=== PATIENT | female | born 1965 | race Caucasian/White ===

== ENCOUNTER 2016-11-27 12:28 | Emergency (ER) | payer MEDICAID ==
[~2016-11-27] VITALS: Wt 76.0 kg
[~2016-11-27 12:28] MED LIST: ACET500C5 PO; OSLT75C PO; PANT40TA3 PO; PROM5SYR2 PO
[2016-11-27] MEDS ORDERED: SOD CHLORIDE 0.9% 1,000 ML IV STA (13:51)
[2016-11-27] MEDS ORDERED: DIPHENHYDRAMINE 50 MG INJ IV STA (13:51)
[2016-11-27] MEDS ORDERED: KETOROLAC 30 MG INJ IV STA (13:51)
[2016-11-27] MEDS ORDERED: METOCLOPRAMIDE 10 MG INJ IV STA (13:51)
[2016-11-27 14:08] LABS: URINE BLOOD (Dip) POC Trace-intact (NEGATIVE)
--- NOTE | 2016-11-27 14:26 | ERD ---
ER Documentation Chief Complaint Date/Time DATE: 11/27/16 TIME: 14:23 Chief Complaint HEADACHE X 2 DAYS HPI Patient is a 50-year-old female with a past medical history of diabetes type 2 who presents to the ED with headache for 3 days. Patient states that she has had this headache before and this is a typical headache she experiences in the past. She denies stating that this headache came on suddenly and denies stating that this is the worst headache of her life. She denies trauma or injury or falls. She says that the pain is located on her entire head and neck. She denies chest pain, cough, shortness of breath or difficulty breathing. She denies dizziness, blurry vision. Denies ear pain. Denies abdominal pain, nausea, vomiting or diarrhea. Denies polyphagia, polyuria polydipsia. She states that her blood sugars are controlled at home ROS All systems reviewed and are negative except as per history of present illness. Medications Home Meds Active Scripts Ondansetron (Ondansetron Odt) 4 Mg Tab.rapdis, 4 MG PO Q6H Y for NAUSEA AND/OR VOMITING, #10 TAB Prov:KATINA ROSALES PA-C 11/27/16 Acetaminophen/Aspirin/Caffeine* (Excedrin*) 1 Tab Tab, 1 TAB PO BID for 14 Days , TAB Prov:KATINA ROSALES PA-C 11/27/16 Oseltamivir Phosphate* (Tamiflu*) 75 Mg Capsule, 75 MG PO BID for 5 Days, CAP Prov:AUDIE STRATTON MD 06/23/16 Acetaminophen* (Tylophen*) 500 Mg Capsule, 1 CAP PO Q6H Y for PAIN AND OR ELEVATED TEMP, #20 CAP Prov:AUDIE STRATTON MD 06/23/16 Promethazine HCl/Codeine (Prometh-Codein 6.25-10 mg/5 ml) 5 Ml Syrup, 5 ML PO TID for COUGH for 4 Days Prov:AUDIE STRATTON MD 06/23/16 Acetaminophen* (Tylophen*) 500 Mg Capsule, 1 CAP PO Q6H Y for PAIN AND OR ELEVATED TEMP, #20 CAP Prov:AUDIE STRATTON MD 06/16/16 Pantoprazole* (Protonix*) 40 Mg Tablet.dr, 40 MG PO DAILY, #20 TAB Prov:AUDIE STRATTON MD 06/16/16 Allergies Allergies: Coded Allergies: No Known Drug Allergies (Verified Allergy, Unknown, 06/23/16) PMhx/Soc History of Surgery: No Anesthesia Reaction: No Hx Neurological Disorder: No Hx Respiratory Disorders: No Hx Cardiac Disorders: No Hx Psychiatric Problems: No Hx Miscellaneous Medical Probl: Yes (DM) Hx Alcohol Use: No Hx Substance Use: No Hx Tobacco Use: No FmHx Family History: No coronary disease, No diabetes, No other Physical Exam Vitals Vital Signs Date Time Temp Pulse Resp B/P Pulse Ox O2 Delivery O2 Flow Rate FiO2 11/27/16 12:32 98.0 92 18 131/72 99 Physical Exam GENERAL: Well-developed, well-nourished female. Appears in no acute distress. HEAD: Normocephalic, atraumatic. EYES: Pupils are equally reactive bilaterally. EOMs grossly intact. No conjunctival erythema. ENT: Moist mucous membranes. No uvula deviation. No kissing tonsils. No exudates. NECK: Supple. No lymphadenopathy or thyromegaly. No meningismus. negative kernig. negative brudinski. LUNG: Clear to auscultation bilaterally. No rhonchi, wheezing, rales or coarse breath sounds. HEART: Regular rate and rhythm. No murmurs, rubs or gallops. Extremities: Equal pulses bilaterally. No peripheral clubbing, cyanosis or edema. No unilateral leg swelling. NEUROLOGIC: Alert and oriented. Moving all four extremities. 5/5 strength in all extremities. Normal speech. Steady gait. Cranial nerves II through XII intact. No ataxia. Negative Romberg test. SKIN: Normal color. Warm and dry. No rashes or lesions. Capillary refill < 2 seconds Results 24 hrs Laboratory Tests Test 11/27/16 14:10 Bedside Urine pH (LAB) 5.5 Bedside Urine Protein (LAB) Negative Bedside Urine Glucose (UA) Negative Bedside Urine Ketones (LAB) Negative Bedside Urine Blood Trace-intact Bedside Urine Nitrite (LAB) Negative Bedside Urine Leukocyte Esterase (L Negative Current Medications Medications (Trade) Dose Ordered Sig/Christi Route PRN Reason Start Time Stop Time Status Last Admin Dose Admin Sodium Chloride (NS) 1,000 ml @ 1,000 mls/hr Q1H STAT IV 11/27/16 13:51 5/22/17 14:50 DC 11/27/16 14:13 Metoclopramide HCl (Reglan) 10 mg ONCE STAT IV 11/27/16 13:51 11/27/16 13:54 DC 11/27/16 14:13 Ketorolac Tromethamine (Toradol) 30 mg ONCE STAT IV 11/27/16 13:51 11/27/16 13:54 DC 11/27/16 14:13 Diphenhydramine HCl (Benadryl) 25 mg ONCE STAT IV 11/27/16 13:51 11/27/16 13:54 DC 11/27/16 14:13 Procedures/MDM ER COURSE: I kept the patient and/or family informed of laboratory and diagnostic imaging results throughout the emergency room course. MEDICATIONS IV fluids, normal saline, Toradol, Reglan, Benadryl. Tolerated well and stated improvement in symptoms. Negative test. MEDICAL DECISION MAKING: This is a 50-year-old female who presents with headache 3 days. Vital signs were reviewed. Patient is afebrile. Patient is not hypoxic. Patient is not toxic or ill-appearing. Patient's headache is something that she has experienced in the past and is likely of unknown etiology, likely migraines. I did not think a CT scan was warranted at this time, patient's cranial nerve examination was within normal limits and this headache was a typical headache she has experienced. I believe the risks outweigh the benefits of a CT scan and I do not think a CT scan is warranted at this time. I discussed the risk versus benefits to the patient. Patient did not want a CT scan. I reexamined patient after medication, she stated improvement in symptoms is ready for home. Low suspicion for intracranial hemorrhage, meningitis, intracranial mass, concussion, temporal arteritis, stroke, elevated intracranial pressure, seizure. DISCHARGE: At this time, patient is stable for discharge and outpatient management with no new complaints during the ER course. Patient was sent home with Maykel Limon and to follow-up with her primary care.. Patient will be discharged home with instructions to recheck for new or worsening symptoms such as fever, nausea , weakness, LOC and to follow up with primary care in the next 1-2 days. Patient was advised to return to the ER for any new or worsening symptoms. Plan was discussed and patient and/or family understands and agrees. Home instructions were given. Departure Diagnosis: Primary Impression: Headache Headache type: unspecified Headache chronicity pattern: unspecified pattern Intractability: not intractable Qualified Code: R51 - Nonintractable headache, unspecified chronicity pattern, unspecified headache type Condition: Stable KATINA ROSALES PA-C November 27, 2016 14:26
[2016-11-27] MEDS ORDERED: EXCED PO (15:45)
[2016-11-27] MEDS ORDERED: ONDA4TAB14 PO (15:45)
== END 2016-11-27 16:03 | disposition home or self-care (01) ==
LOC: FTE 12:28
DX: R51 Headache (principal); E11.9 Type 2 diabetes mellitus without complications
CPT/HCPCS: 81003; 96374; 96375; J1200; J1885; J2765; J7030; Z7502

== ENCOUNTER 2017-01-06 15:56 | Emergency (ER) | payer MEDICAID ==
[~2017-01-06] VITALS: Ht 152.4 cm; Wt 97.7 kg
[~2017-01-06 15:56] MED LIST changes: +EXCED PO; +ONDA4TAB14 PO
[2017-01-06 15:57] VITALS: Ht 152.4 cm; Wt 97.7 kg
[2017-01-06] MEDS ORDERED: SOD CHLORIDE 0.9% 1,000 ML IV STA (16:18)
[2017-01-06 16:43] LABS: ADD SCAN DIFF NO; BASOPHILS % 0.3 % (0.0-2.0); EOSINOPHILS % 0.6 % (0.0-7.0); HEMATOCRIT 38.1 % (37.0-47.0); HEMOGLOBIN 12.6 g/dl (12.0-16.0); LYMPHOCYTES # 2.7 10^3/ul (0.8-2.9); LYMPHOCYTES % 40.7 % (15.0-51.0); MEAN CORPUSCULAR HEMOGLOBIN 29.7 pg (29.0-33.0); MEAN CORPUSCULAR HGB CONC 33.1 g/dl (32.0-37.0); MEAN CORPUSCULAR VOLUME 89.9 fl (82.0-101.0); MONOCYTE # 0.4 10^3/ul (0.3-0.9); MONOCYTES % 6.7 % (0.0-11.0); NEUTROPHIL # 3.4 10^3/ul (1.6-7.5); NEUTROPHILS % 51.5 % (39.0-77.0); PLATELET COUNT 199 10^3/UL (140-415); RED BLOOD COUNT 4.24 10^6/ul (4.20-5.40); RED CELL DISTRIBUTION WIDTH 13.3 % (11.5-14.5); WHITE BLOOD COUNT 6.6 10^3/ul (4.8-10.8)
[2017-01-06 17:01] LABS: ALANINE AMINOTRANSFERASE 44 IU/L (13-69); ALBUMIN 5.1 g/dl (3.3-4.9); ALBUMIN/GLOBULIN RATIO 1.34; ALKALINE PHOSPHATASE 110 IU/L (42-121); ANION GAP 17 (8-16); ASPARTATE AMINO TRANSFERASE 26 IU/L (15-46); BILIRUBIN,INDIRECT 0.1 mg/dl (0-1.1); BILIRUBIN,TOTAL 0.1 mg/dl (0.2-1.3); BLOOD UREA NITROGEN 14 mg/dl (7-20); CALCIUM 9.7 mg/dl (8.4-10.2); CARBON DIOXIDE 26 mmol/L (21-31); CHLORIDE 100 mmol/L (97-110); GLUCOSE 122 mg/dl (70-220); POTASSIUM 3.6 mmol/L (3.5-5.1); SODIUM 139 mmol/L (135-144); TOTAL PROTEIN 8.9 g/dl (6.1-8.1)
[2017-01-06 17:13] LABS: ADD UMIC NO; UR ASCORBIC ACID NEGATIVE (NEGATIVE); UR BILIRUBIN (Dip) NEGATIVE (NEGATIVE); UR BLOOD (Dip) NEGATIVE (NEGATIVE); UR CLARITY CLEAR (CLEAR); UR COLOR STRAW (YELLOW); UR GLUCOSE (Dip) NEGATIVE (NEGATIVE); UR KETONES (Dip) NEGATIVE (NEGATIVE); UR LEUKOCYTE ESTERASE (Dip) NEGATIVE Leu/ul (NEGATIVE); UR NITRITE (Dip) NEGATIVE (NEGATIVE); UR SPECIFIC GRAVITY (Dip) 1.009 (1.003-1.030); UR TOTAL PROTEIN (Dip) NEGATIVE (NEGATIVE); UR UROBILINOGEN (Dip) NEGATIVE (NEGATIVE)
[2017-01-06 17:14] LABS: TROPONIN-I < 0.012 ng/ml (0.00-0.12)
[2017-01-06] MEDS ORDERED: METF1000 PO (17:43)
[2017-01-06] MEDS ORDERED: ASPI-664 PO (17:43)
[2017-01-06] MEDS ORDERED: SIMV20TA2 PO (17:43)
[2017-01-06] MEDS ORDERED: NAPR-685 PO (19:06)
--- NOTE | 2017-01-06 19:14 | ERD ---
ER Documentation Chief Complaint Date/Time DATE: 01/06/17 TIME: 19:10 Chief Complaint headache; non radiating chest pain started yesterday HPI This 51-year-old female presents for a mild to moderate frontal headache as well as chest pain and epigastric pain that began yesterday. Chest pain is described as an ache and is nonradiating. Headache is described as a constant pain. Headache is not severe. She has no shortness of breath or nausea. ROS All systems reviewed and are negative except as per history of present illness. Medications Home Meds Active Scripts Naproxen* (Naproxen*) 375 Mg Tablet, 375 MG PO BID Y for PAIN, #10 TAB Prov:RAMANA ABARCA DO 01/06/17 Reported Medications Aspirin (Low Dose Aspirin) 81 Mg Tablet.dr, 81 MG PO DAILY, #30 TAB 01/06/17 Simvastatin (Simvastatin) 20 Mg Tablet, 20 MG PO QHS, #30 TAB 01/06/17 Metformin Hcl* (Metformin Hcl*) 1,000 Mg Tablet, 1000 MG PO WITH BREAKFAST DINNE , #30 TAB 01/06/17 Discontinued Scripts Ondansetron (Ondansetron Odt) 4 Mg Tab.rapdis, 4 MG PO Q6H Y for NAUSEA AND/OR VOMITING, #10 TAB Prov:KATINA ROSALES PA-C 11/27/16 Acetaminophen/Aspirin/Caffeine* (Excedrin*) 1 Tab Tab, 1 TAB PO BID for 14 Days , TAB Prov:KATINA ROSALES PA-C 11/27/16 Oseltamivir Phosphate* (Tamiflu*) 75 Mg Capsule, 75 MG PO BID for 5 Days, CAP Prov:AUDIE STRATTON MD 06/23/16 Acetaminophen* (Tylophen*) 500 Mg Capsule, 1 CAP PO Q6H Y for PAIN AND OR ELEVATED TEMP, #20 CAP Prov:AUDIE STRATTON MD 06/23/16 Promethazine HCl/Codeine (Prometh-Codein 6.25-10 mg/5 ml) 5 Ml Syrup, 5 ML PO TID for COUGH for 4 Days Prov:AUDIE STRATTON MD 06/23/16 Acetaminophen* (Tylophen*) 500 Mg Capsule, 1 CAP PO Q6H Y for PAIN AND OR ELEVATED TEMP, #20 CAP Prov:AUDIE STRATTON MD 06/16/16 Pantoprazole* (Protonix*) 40 Mg Tablet.dr, 40 MG PO DAILY, #20 TAB Prov:AUDIE STRATTON MD 06/16/16 Allergies Allergies: Coded Allergies: No Known Drug Allergies (Verified Allergy, Unknown, 01/06/17) PMhx/Soc History of Surgery: Yes ( X3) Anesthesia Reaction: No Hx Neurological Disorder: No Hx Respiratory Disorders: No Hx Cardiac Disorders: Yes (HDL) Hx Psychiatric Problems: No Hx Miscellaneous Medical Probl: Yes (DM) Hx Alcohol Use: No Hx Substance Use: No Hx Tobacco Use: No Smoking Status: Never smoker Physical Exam Vitals Vital Signs Date Time Temp Pulse Resp B/P Pulse Ox O2 Delivery O2 Flow Rate FiO2 01/06/17 15:57 98.0 114 19 176/90 100 Physical Exam Const: [] Head: Atraumatic Eyes: Normal Conjunctiva ENT: Normal External Ears, Nose and Mouth. Neck: Full range of motion..~ No meningismus. Resp: Clear to auscultation bilaterally Cardio: Regular rate and rhythm, no murmurs Abd: Soft, non tender, non distended. Normal bowel sounds Skin: No petechiae or rashes Back: No midline or flank tenderness Ext: No cyanosis, or edema Neur: Awake and alert Psych: Normal Mood and Affect Result Diagram: 01/06/17 1635 01/06/17 1635 Results 24 hrs Laboratory Tests Test 01/06/17 16:35 01/06/17 16:40 White Blood Count 6.610^3/ul Red Blood Count 4.2410^6/ul Hemoglobin 12.6g/dl Hematocrit 38.1% Mean Corpuscular Volume 89.9fl Mean Corpuscular Hemoglobin 29.7pg Mean Corpuscular Hemoglobin Concent 33.1g/dl Red Cell Distribution Width 13.3% Platelet Count 02269^3/UL Mean Platelet Volume 11.0fl Neutrophils % 51.5% Lymphocytes % 40.7% Monocytes % 6.7% Eosinophils % 0.6% Basophils % 0.3% Nucleated Red Blood Cells % 0.0/100WBC Neutrophils # 3.410^3/ul Lymphocytes # 2.710^3/ul Monocytes # 0.410^3/ul Eosinophils # 0.010^3/ul Basophils # 0.010^3/ul Nucleated Red Blood Cells # 0.010^3/ul Sodium Level 139mmol/L Potassium Level 3.6mmol/L Chloride Level 100mmol/L Carbon Dioxide Level 26mmol/L Anion Gap 17 Blood Urea Nitrogen 14mg/dl Creatinine 0.70mg/dl Glucose Level 122mg/dl Calcium Level 9.7mg/dl Total Bilirubin 0.1mg/dl Direct Bilirubin 0.00mg/dl Indirect Bilirubin 0.1mg/dl Aspartate Amino Transf (AST/SGOT) 26IU/L Alanine Aminotransferase (ALT/SGPT) 44IU/L Alkaline Phosphatase 110IU/L Troponin I < 0.012ng/ml Total Protein 8.9g/dl Albumin 5.1g/dl Globulin 3.80g/dl Albumin/Globulin Ratio 1.34 Lipase 138U/L Urine Color STRAW Urine Clarity CLEAR Urine pH 6.0 Urine Specific [place] 1.009 Urine Ketones NEGATIVEmg/dL Urine Nitrite NEGATIVEmg/dL Urine Bilirubin NEGATIVEmg/dL Urine Urobilinogen NEGATIVEmg/dL Urine Leukocyte Esterase NEGATIVELeu/ul Urine Hemoglobin NEGATIVEmg/dL Urine Glucose NEGATIVEmg/dL Urine Total Protein NEGATIVEmg/dl Urine Test NEGATIVE Current Medications Medications (Trade) Dose Ordered Sig/Christi Route PRN Reason Start Time Stop Time Status Last Admin Dose Admin Sodium Chloride (NS) 1,000 ml @ 1,000 mls/hr Q1H STAT IV 01/06/17 16:18 01/06/17 17:17 DC 01/06/17 16:50 Aspirin (Aspirin) 324 mg ONCE ONCE PO 01/06/17 19:30 01/06/17 19:31 Procedures/MDM Chest pains with no signs of ischemia. Negative troponin after 1 day of chest pain with no recent increase. Pain was resolved in the emergency room with nothing but IV fluid as treatment. Headache also dissipated with no treatment. I see no reason for CAT scan imaging of head is headache dissipated with fluid only and patient says that it was not very bad. Also does not have any pain pattern consistent with subarachnoid hemorrhage. I doubt acute coronary syndrome also. Going to discharge her with naproxen in case she experiences a headache again. I am also discharging with instructions see her primary care doctor in the next couple of days and obtain an echocardiogram as an outpatient. I give her both verbal and written instructions of this. She feels well and thanks us for her care. She was also administered 325 mg of aspirin. EKG interpretation: Sinus tachycardia to 102, normal axis, no ST or T-wave changes concerning for acute ischemia, normal intervals. site monitor interpretation: Normal sinus rhythm without arrhythmia. Departure Diagnosis: Primary Impression: Headache Additional Impression: Chest pain Condition: Stable Patient Instructions: Self-Care for Headaches, Chest Pain, Uncertain Cause Additional Instructions: Llame al doctor ELKE y geneva rocio CHUCKIE PARA DENTRO DE 1-2 ZARATE. Consigue un referral para un ECHOCARDIOGRAMA. Dgale a la secretaria que nosotros le instruimos hacer esta chuckie.Avise o llame si galdamez condicin se empeora antes de la chuckie. Regresa aqui si peor o no mejor. RAMANA ABARCA DO Jan 06, 2017 19:14
[2017-01-06 19:24] VITALS: BP 142/78; PULSE 67; RESP 19; TEMP 98
[2017-01-06] MEDS ORDERED: ASPIRIN 81 MG TAB PO ONE (19:30)
== END 2017-01-06 19:25 | disposition home or self-care (01) ==
LOC: E/R 15:56
DX: R51 Headache (principal); R07.9 Chest pain, unspecified; E11.9 Type 2 diabetes mellitus without complications; Z79.82 Long term (current) use of aspirin; Z79.84 Long term (current) use of oral hypoglycemic drugs
CPT/HCPCS: 80053; 81003; 83690; 84484; 84703; 85025; 96360; J7030; Z7502; Z7610; 93005

== ENCOUNTER 2017-01-27 21:55 | Emergency (ER) | payer MEDICAID ==
[~2017-01-27] VITALS: Ht 160 cm; Wt 65.0 kg
[~2017-01-27 21:55] MED LIST changes: -ACET500C5 PO; +ASPI-664 PO; -EXCED PO; +METF1000 PO; +NAPR-685 PO; -ONDA4TAB14 PO; -OSLT75C PO; -PANT40TA3 PO; -PROM5SYR2 PO; +SIMV20TA2 PO
[2017-01-27 22:07] VITALS: Ht 160 cm; Wt 65.0 kg
--- NOTE | 2017-01-27 23:46 | ERD ---
ER Documentation Chief Complaint Date/Time DATE: 01/27/17 TIME: 23:44 Chief Complaint c/o epigastric pain x 12 hrs. HPI This 51-year-old diabetic female presents to emergency department with epigastric pain and burning since yesterday morning pain is radiating to right upper quadrant, patient denies nausea or vomiting, fever or chills. Denies dysuria, hematuria. Chest pain shortness of breath palpitations or dizziness. ROS All systems reviewed and are negative except as per history of present illness. Medications Home Meds Active Scripts Naproxen* (Naproxen*) 375 Mg Tablet, 375 MG PO BID Y for PAIN, #10 TAB Prov:RAMANA ABARCA DO 01/06/17 Reported Medications Aspirin (Low Dose Aspirin) 81 Mg Tablet.dr, 81 MG PO DAILY, #30 TAB 01/06/17 Simvastatin (Simvastatin) 20 Mg Tablet, 20 MG PO QHS, #30 TAB 01/06/17 Metformin Hcl* (Metformin Hcl*) 1,000 Mg Tablet, 1000 MG PO WITH BREAKFAST DINNE , #30 TAB 01/06/17 Allergies Allergies: Coded Allergies: No Known Drug Allergies (Verified Allergy, Unknown, 01/27/17) PMhx/Soc History of Surgery: Yes ( X3) Anesthesia Reaction: No Hx Neurological Disorder: No Hx Respiratory Disorders: No Hx Cardiac Disorders: Yes (HDL) Hx Psychiatric Problems: No Hx Miscellaneous Medical Probl: Yes (DM) Hx Alcohol Use: No Hx Substance Use: No Hx Tobacco Use: No Smoking Status: Never smoker Physical Exam Vitals Vital Signs Date Time Temp Pulse Resp B/P Pulse Ox O2 Delivery O2 Flow Rate FiO2 01/27/17 22:07 98.1 81 18 122/69 98 Physical Exam Const: Well-nourished, well-hydrated, well-appearing in obvious discomfort no acute distress Head: Atraumatic Eyes: Normal Conjunctiva, PERRLA, EOMI ENT: Normal External Ears, Nose and Mouth. His membranes moist Neck: Resp: Clear to auscultation bilaterally, no rales wheezes or rhonchi Cardio: Regular rate and rhythm, no murmurs, S1-S2, no S3-S4 Abd: Obese, soft, non-tympanic abdomen positive Baptiste sign, positive epigastric tenderness, rebound tenderness. No CVA tenderness Skin: No petechiae or rashes Back: No midline or flank tenderness Ext: No cyanosis, or edema Neur: Awake and alert Psych: Normal Mood and Affect Result Diagram: 01/27/17 2355 01/27/17 2355 Results 24 hrs Laboratory Tests Test 01/27/17 23:55 White Blood Count 5.710^3/ul Red Blood Count 4.1710^6/ul Hemoglobin 12.4g/dl Hematocrit 37.6% Mean Corpuscular Volume 90.2fl Mean Corpuscular Hemoglobin 29.7pg Mean Corpuscular Hemoglobin Concent 33.0g/dl Red Cell Distribution Width 13.7% Platelet Count 51605^3/UL Mean Platelet Volume 11.6fl Neutrophils % 51.9% Lymphocytes % 40.5% Monocytes % 6.3% Eosinophils % 0.9% Basophils % 0.4% Nucleated Red Blood Cells % 0.0/100WBC Neutrophils # 3.010^3/ul Lymphocytes # 2.310^3/ul Monocytes # 0.410^3/ul Eosinophils # 0.110^3/ul Basophils # 0.010^3/ul Nucleated Red Blood Cells # 0.010^3/ul Urine Color STRAW Urine Clarity CLEAR Urine pH 7.0 Urine Specific [place] 1.025 Urine Ketones TRACEmg/dL Urine Nitrite NEGATIVEmg/dL Urine Bilirubin NEGATIVEmg/dL Urine Urobilinogen NEGATIVEmg/dL Urine Leukocyte Esterase NEGATIVELeu/ul Urine Hemoglobin NEGATIVEmg/dL Urine Glucose 3+mg/dL Urine Total Protein NEGATIVEmg/dl Sodium Level 141mmol/L Potassium Level 4.1mmol/L Chloride Level 96mmol/L Carbon Dioxide Level 28mmol/L Anion Gap 21 Blood Urea Nitrogen 14mg/dl Creatinine 0.70mg/dl Glucose Level 249mg/dl Calcium Level 9.7mg/dl Total Bilirubin 0.1mg/dl Direct Bilirubin 0.00mg/dl Indirect Bilirubin 0.1mg/dl Aspartate Amino Transf (AST/SGOT) 23IU/L Alanine Aminotransferase (ALT/SGPT) 45IU/L Alkaline Phosphatase 107IU/L Total Protein 8.3g/dl Albumin 4.6g/dl Globulin 3.70g/dl Albumin/Globulin Ratio 1.24 Lipase 168U/L Current Medications Medications (Trade) Dose Ordered Sig/Christi Route PRN Reason Start Time Stop Time Status Last Admin Dose Admin Sodium Chloride (NS) 1,000 ml @ 1,000 mls/hr Q1H STAT IV 01/27/17 23:47 01/28/17 00:46 DC 01/28/17 00:03 Ketorolac Tromethamine (Toradol) 15 mg ONCE STAT IV 01/27/17 23:47 01/27/17 23:51 DC 01/28/17 00:03 Pantoprazole (Protonix Iv) 40 mg ONCE ONCE IV 01/28/17 00:00 01/28/17 00:01 DC 01/28/17 00:03 Interpretation text CBC shows no evidence of hemorrhage or infection Chemistry shows no evidence of significant electrolyte abnormalities or renal insufficiency Liver function tests shows no evidence of acute biliary or hepatic dysfunction Lipase shows no evidence of acute pancreatitis Procedures/MDM EKG: Rate/Rhythm: Normal Sinus Rhythm ventricular rate of 71 beats per no ectopy QRS, ST, T-waves: No changes consistent w/ acute ischemia Impression: No evidence of ischemia or arrhythmia PROCEDURE: Right upper quadrant ultrasound. CLINICAL INDICATION: Abdominal pain. TECHNIQUE: Multiple real-time longitudinal and transverse images of the right upper quadrant of the abdomen were acquired utilizing a curved array transducer. Images were reviewed on a high-resolution PACS workstation. COMPARISON: None. FINDINGS: The pancreas is unremarkable. The liver is normal in echogenicity. The liver measures 14.8 cm in length. No hepatic lesion or intrahepatic biliary ductal dilatation is seen. The portal vein is patent with hepatopetal flow. Multiple stones are seen within the gallbladder lumen. The gallbladder wall is not thickened. There is no pericholecystic fluid. The sonographic Baptiste's sign is positive. The common bile duct measures 5 mm in diameter, not dilated. The right kidney measures 9.4 cm in length. Renal echogenicity is normal. There is no hydronephrosis, urinary calculus, or renal mass. The visualized portions of the aorta and IVC are unremarkable. IMPRESSION: 1. Cholelithiasis and a positive sonographic Baptiste's sign. No gallbladder wall thickening is seen, however. This findings are nonspecific but could represent biliary colic or early cholecystitis. 2. No biliary dilatation. Electronically viewed and signed by .Sai Parker MD, MD on 01/28/2017 01:51 This 51-year-old female presents to emergency department today with epigastric pain starting this morning pain is radiating to her back, patient reports chest tightness, history of diabetes and hyperlipidemia, low suspicion for acute ND or acute coronary syndromes, ECG was done regardless with documentation of normal sinus rhythm at a ventricular rate of 71 bpm. Laboratory testing is unremarkable for acute bacterial infection, anemia. Blood sugar elevated on nonfasting lab. Otherwise electrolytes unremarkable. Liver enzymes negative for pancreatitis, LFTs negative for hepatitis. Abdominal ultrasound specific for gallbladder supports findings of cholelithiasis with positive sonographic Baptiste sign. No gallbladder wall thickening. Suspected early cholecystitis or biliary colic. Patient has been treated in emergency department with IV normal saline, IV Protonix, IV Toradol, with improvement of symptoms. Patient is hemodynamically stable, plan to discharge patient with diagnosis of cholecystitis, with only lithiasis. Cipro 500 mg twice daily 7 days, Flagyl 3 times daily 7 days first dose given in the emergency department, [place] 5/325 given. Patient will be sent home with a 7 count supply. Follow-up with primary care physician for referral to gastroenterology, diet and lifestyle changes discussed. Return to emergency department for pain, nausea, vomiting, or symptoms not responding to treatment as anticipated. I feel the patient is stable for discharge at this time. I have discussed results, examination findings, the treatment plan with the patient and family present prior to discharge. Indications for emergent reevaluation, side effects of medication were also discussed. All questions were answered. Patient verbalizes understanding and agrees with plan of care. Departure Diagnosis: Primary Impression: Cholecystitis Additional Impression: Cholelithiasis Cholelithiasis location: gallbladder Cholecystitis presence: with cholecystitis Cholecystitis acuity: acute Biliary obstruction: without biliary obstruction Qualified Code: K80.00 - Calculus of gallbladder with acute cholecystitis without obstruction Condition: Good Patient Instructions: Cholecystitis, Presumed, Gallstones NESTOR DE LA CRUZ Jan 27, 2017 23:46
[2017-01-27] MEDS ORDERED: KETOROLAC 15 MG INJ IV STA (23:47)
[2017-01-27] MEDS ORDERED: SOD CHLORIDE 0.9% 1,000 ML IV STA (23:47)
[2017-01-28] MEDS ORDERED: PANTOPRAZOLE 40 MG INJ IV ONE
[2017-01-28 00:15] LABS: BASOPHILS % 0.4 % (0.0-2.0); EOSINOPHILS # 0.1 10^3/ul (0.0-0.5); EOSINOPHILS % 0.9 % (0.0-7.0); HEMATOCRIT 37.6 % (37.0-47.0); HEMOGLOBIN 12.4 g/dl (12.0-16.0); LYMPHOCYTES # 2.3 10^3/ul (0.8-2.9); LYMPHOCYTES % 40.5 % (15.0-51.0); MEAN CORPUSCULAR HEMOGLOBIN 29.7 pg (29.0-33.0); MEAN CORPUSCULAR VOLUME 90.2 fl (82.0-101.0); MEAN PLATELET VOLUME 11.6 fl (7.4-10.4); MONOCYTE # 0.4 10^3/ul (0.3-0.9); MONOCYTES % 6.3 % (0.0-11.0); NEUTROPHILS % 51.9 % (39.0-77.0); PLATELET COUNT 203 10^3/UL (140-415); RED BLOOD COUNT 4.17 10^6/ul (4.20-5.40); RED CELL DISTRIBUTION WIDTH 13.7 % (11.5-14.5); WHITE BLOOD COUNT 5.7 10^3/ul (4.8-10.8)
[2017-01-28 00:25] LABS: ADD UMIC NO; UR ASCORBIC ACID NEGATIVE (NEGATIVE); UR BILIRUBIN (Dip) NEGATIVE (NEGATIVE); UR BLOOD (Dip) NEGATIVE (NEGATIVE); UR CLARITY CLEAR (CLEAR); UR COLOR STRAW (YELLOW); UR GLUCOSE (Dip) 3+ mg/dL (NEGATIVE); UR KETONES (Dip) TRACE mg/dL (NEGATIVE); UR LEUKOCYTE ESTERASE (Dip) NEGATIVE Leu/ul (NEGATIVE); UR NITRITE (Dip) NEGATIVE (NEGATIVE); UR SPECIFIC GRAVITY (Dip) 1.025 (1.003-1.030); UR TOTAL PROTEIN (Dip) NEGATIVE (NEGATIVE); UR UROBILINOGEN (Dip) NEGATIVE (NEGATIVE)
[2017-01-28 00:51] LABS: ALBUMIN 4.6 g/dl (3.3-4.9); ALBUMIN/GLOBULIN RATIO 1.24; BILIRUBIN,INDIRECT 0.1 mg/dl (0-1.1); BILIRUBIN,TOTAL 0.1 mg/dl (0.2-1.3); CALCIUM 9.7 mg/dl (8.4-10.2); CREATININE 0.7 mg/dl (0.44-1.00); POTASSIUM 4.1 mmol/L (3.5-5.1); TOTAL PROTEIN 8.3 g/dl (6.1-8.1)
--- NOTE | 2017-01-28 01:51 | RADRPT ---
PROCEDURE: Right upper quadrant ultrasound. CLINICAL INDICATION: Abdominal pain. TECHNIQUE: Multiple real-time longitudinal and transverse images of the right upper quadrant of th e abdomen were acquired utilizing a curved array transducer. Images were reviewed on a high-resoluti on PACS workstation. COMPARISON: None. FINDINGS: The pancreas is unremarkable. The liver is normal in echogenicity. The liver measures 14.8 cm in length. No hepatic lesion or in trahepatic biliary ductal dilatation is seen. The portal vein is patent with hepatopetal flow. Multiple stones are seen within the gallbladder lumen. The gallbladder wall is not thickened. Ther e is no pericholecystic fluid. The sonographic Baptiste's sign is positive. The common bile duct measu res 5 mm in diameter, not dilated. The right kidney measures 9.4 cm in length. Renal echogenicity is normal. There is no hydronephros is, urinary calculus, or renal mass. The visualized portions of the aorta and IVC are unremarkable. IMPRESSION: 1. Cholelithiasis and a positive sonographic Baptiste's sign. No gallbladder wall thickening is seen , however. This findings are nonspecific but could represent biliary colic or early cholecystitis. 2. No biliary dilatation. RPTAT: HTAR .Sai Parker MD, Date Time Electronically viewed and signed by .Sai Parker MD, on 01/28/2017 01:51 .R/
[2017-01-28] MEDS ORDERED: HYDR-906 PO (02:47)
[2017-01-28] MEDS ORDERED: CIPR500T4 PO (02:47)
[2017-01-28] MEDS ORDERED: METR500T PO (02:47)
[2017-01-28 02:59] VITALS: BP 113/58; PULSE 67; RESP 18; TEMP 97.6
[2017-01-28] MEDS ORDERED: CIPROFLOXACIN 500 MG TAB PO ONE (03:00)
[2017-01-28] MEDS ORDERED: HYDROCODONE/APAP (5/325) TAB PO ONE (03:00)
[2017-01-28] MEDS ORDERED: metroNIDAZOLE 500 MG TAB PO ONE (03:00)
== END 2017-01-28 03:13 | disposition home or self-care (01) ==
LOC: FTE 21:55
DX: K80.00 Calculus of gallbladder with acute cholecystitis without obstruction (principal); E11.9 Type 2 diabetes mellitus without complications; Z79.82 Long term (current) use of aspirin; Z79.84 Long term (current) use of oral hypoglycemic drugs
CPT/HCPCS: 36415; 76705; 80053; 81003; 83690; 85025; 93005; 96374; 96375; C9113; J1885; J7030; Z7502; Z7610

== ENCOUNTER 2017-02-06 19:19 | Emergency (ER) | payer MEDICAID ==
[~2017-02-06] VITALS: Ht 157.5 cm; Wt 60.0 kg
[~2017-02-06 19:19] MED LIST changes: +CIPR500T4 PO; +HYDR-906 PO; +METR500T PO
[2017-02-06 19:20] VITALS: Ht 157.5 cm; Wt 60.0 kg
[2017-02-06] MEDS ORDERED: KETOROLAC 30 MG INJ IV STA (20:00)
[2017-02-06] MEDS ORDERED: ONDANSETRON 4 MG INJ IV STA (20:00)
[2017-02-06 20:39] LABS: BASOPHILS % 0.3 % (0.0-2.0); EOSINOPHILS % 0.7 % (0.0-7.0); HEMATOCRIT 38.8 % (37.0-47.0); HEMOGLOBIN 12.6 g/dl (12.0-16.0); LYMPHOCYTES # 1.5 10^3/ul (0.8-2.9); LYMPHOCYTES % 24.8 % (15.0-51.0); MEAN CORPUSCULAR HGB CONC 32.5 g/dl (32.0-37.0); MEAN CORPUSCULAR VOLUME 89.2 fl (82.0-101.0); MEAN PLATELET VOLUME 11.8 fl (7.4-10.4); MONOCYTE # 0.3 10^3/ul (0.3-0.9); NEUTROPHIL # 4.1 10^3/ul (1.6-7.5); NEUTROPHILS % 68.7 % (39.0-77.0); PLATELET COUNT 181 10^3/UL (140-415); RED BLOOD COUNT 4.35 10^6/ul (4.20-5.40); RED CELL DISTRIBUTION WIDTH 14.2 % (11.5-14.5)
[2017-02-06 20:51] LABS: ADD UMIC NO; UR ASCORBIC ACID NEGATIVE (NEGATIVE); UR BILIRUBIN (Dip) NEGATIVE (NEGATIVE); UR BLOOD (Dip) NEGATIVE (NEGATIVE); UR CLARITY CLEAR (CLEAR); UR COLOR YELLOW (YELLOW); UR GLUCOSE (Dip) 3+ mg/dL (NEGATIVE); UR KETONES (Dip) NEGATIVE (NEGATIVE); UR LEUKOCYTE ESTERASE (Dip) NEGATIVE Leu/ul (NEGATIVE); UR NITRITE (Dip) NEGATIVE (NEGATIVE); UR TOTAL PROTEIN (Dip) NEGATIVE (NEGATIVE); UR UROBILINOGEN (Dip) NEGATIVE (NEGATIVE)
[2017-02-06 21:01] LABS: INR 0.91; PROTIME 12.3 Sec (12.2-14.2)
[2017-02-06 21:02] LABS: PARTIAL THROMBOPLASTIN TIME 21.8 Sec (25.0-35.0)
[2017-02-06 21:05] LABS: ALBUMIN 4.4 g/dl (3.3-4.9); ALBUMIN/GLOBULIN RATIO 1.1; BILIRUBIN,INDIRECT 0.1 mg/dl (0-1.1); BILIRUBIN,TOTAL 0.1 mg/dl (0.2-1.3); CALCIUM 9.5 mg/dl (8.4-10.2); CREATININE 0.66 mg/dl (0.44-1.00); POTASSIUM 4.3 mmol/L (3.5-5.1); TOTAL PROTEIN 8.4 g/dl (6.1-8.1)
[2017-02-06] MEDS ORDERED: INSULIN LISPRO 100 UNIT/ML VIAL SC STA (21:13)
[2017-02-06] MEDS ORDERED: SOD CHLORIDE 0.9% 1,000 ML IV ONE (21:30)
--- NOTE | 2017-02-06 21:49 | RADRPT ---
PROCEDURE: CT Abdomen and Pelvis without contrast. CLINICAL INDICATION: Abdominal and pelvic pain. TECHNIQUE: CT scan of the abdomen and pelvis without contrast was performed. Coronal and sagittal reformatted images were obtained from the axial source images. Images were reviewed on a high-resolu [address] PACS workstation. Total exam DLP is 373.94 mGy-cm. CTDIvol is 7.06 mGy. One or more of the fo [place] dose reduction techniques were used: Automated exposure control, adjustment of the mA and/or kV according to patient size, use of iterative reconstruction technique. COMPARISON: Right upper quadrant abdomen ultrasound dated 01/28/2017 which demonstrated multiple g allstones in the gallbladder. FINDINGS: The lung bases are normal. There is no pleural effusion. The liver is normal in size and attenuation. There is no focal hepatic lesion. Gallstones are present in the gallbladder. There is no gallbladder wall thickening or fluid around the gallbladder. The bile ducts are normal. The spleen is normal in size. There is no focal splenic lesion. Both adrenals are normal with no enlargement or mass. The pancreas is unremarkable with no mass or evidence of pancreatitis. There is no renal mass or hydronephrosis. There is no renal calculus or ureteral calculus. The abdominal aorta is not dilated. There is no retroperitoneal lymphadenopathy or mass. There is no pelvic lymphadenopathy or mass. The bladder and distal ureters are normal. The periappendiceal region is unremarkable with no evidence of appendicitis. The bowel and mesentery are normal. There is no free fluid or free gas. There are mild degenerative changes of the spine with small osteophytes noted. The osseous structur es are otherwise unremarkable with no fracture or lytic lesion. IMPRESSION: 1. Gallstones in the gallbladder. No evidence of cholecystitis. 2. Mild degenerative changes of the spine. 3. Otherwise unremarkable study. RPTAT: QQ .Donald Lopez MD, Date Time Electronically viewed and signed by .Donald Lopez MD, on 02/06/2017 21:48 .R/
[2017-02-06] MEDS ORDERED: NAPR-260 PO (22:31)
[2017-02-06 22:43] VITALS: BP 135/76; PULSE 76; RESP 20
--- NOTE | 2017-02-06 23:44 | ERD ---
ER Documentation Chief Complaint Date/Time DATE: 02/06/17 TIME: 23:39 Chief Complaint BIB FAMILY C/O MID ABDOMINAL PAIN X 10 MIN, NAUSEA/VOMITING. HPI This patient is a 51-year-old female presenting to the emergency department with complaints of midepigastric abdominal pain which began approximately 10 minutes prior to arrival. She has had pain intermittently for the past week but it worsened today. She had one episode of vomiting today but no diarrhea. She denies fevers, chills, or other symptoms. She was diagnosed recently with gallstones. ROS All systems reviewed and are negative except as per history of present illness. Medications Home Meds Active Scripts Naproxen* (Naprosyn*) 500 Mg Tablet, 500 MG PO BID Y for PAIN AND/OR INFLAMMATION, #30 TAB Prov:JOSE F BARRETT PA-C 02/06/17 Hydrocodone/Acetaminophen ([place] 5-325 Tablet) 1 Each Tablet, 1 TAB PO Q6H Y for PAIN, #7 TAB Prov:JONO,NESTOR 01/28/17 Metronidazole* (Flagyl*) 500 Mg Tablet, 500 MG PO TID for 7 Days, TAB Prov:JONO,NESTOR 01/28/17 Ciprofloxacin Hcl* (Ciprofloxacin Hcl*) 500 Mg Tablet, 500 MG PO BID for 7 Days , TAB Prov:JONO,NESTOR 01/28/17 Naproxen* (Naproxen*) 375 Mg Tablet, 375 MG PO BID Y for PAIN, #10 TAB Prov:RAMANA ABARCA DO 01/06/17 Reported Medications Aspirin (Low Dose Aspirin) 81 Mg Tablet.dr, 81 MG PO DAILY, #30 TAB 01/06/17 Simvastatin (Simvastatin) 20 Mg Tablet, 20 MG PO QHS, #30 TAB 01/06/17 Metformin Hcl* (Metformin Hcl*) 1,000 Mg Tablet, 1000 MG PO WITH BREAKFAST DINNE , #30 TAB 01/06/17 Allergies Allergies: Coded Allergies: No Known Drug Allergies (Verified Allergy, Unknown, 01/27/17) PMhx/Soc History of Surgery: Yes ( X3) Anesthesia Reaction: No Hx Neurological Disorder: No Hx Respiratory Disorders: No Hx Cardiac Disorders: Yes (HDL) Hx Psychiatric Problems: No Hx Miscellaneous Medical Probl: Yes (DM) Hx Alcohol Use: No Hx Substance Use: No Hx Tobacco Use: No Smoking Status: Never smoker Physical Exam Vitals Vital Signs Date Time Temp Pulse Resp B/P Pulse Ox O2 Delivery O2 Flow Rate FiO2 02/06/17 22:43 76 20 135/76 100 Room Air 02/06/17 19:20 97.7 92 18 160/94 100 Physical Exam Const: Obese female, nontoxic appearing, and in no acute distress. Head: Atraumatic Eyes: Normal Conjunctiva ENT: Normal External Ears, Nose and Mouth. Neck: Full range of motion..~ No meningismus. Resp: Clear to auscultation bilaterally Cardio: Regular rate and rhythm, no murmurs Abd: Obese, soft, the patient has mild right upper quadrant tenderness to palpation but negative Baptiste sign, the patient has some mild right lower quadrant tenderness to palpation but no rebound tenderness or guarding, non distended. Normal bowel sounds Skin: No petechiae or rashes Back: No midline or flank tenderness Ext: No cyanosis, or edema Neur: Awake and alert Psych: Normal Mood and Affect Result Diagram: 02/06/17202902/06/172029 Results 24 hrs Laboratory Tests Test 02/06/17 20:15 02/06/17 20:30 02/06/17 21:24 02/06/17 22:32 Urine Color YELLOW Urine Clarity CLEAR Urine pH 5.0 Urine Specific [place] 1.040 Urine Ketones NEGATIVEmg/dL Urine Nitrite NEGATIVEmg/dL Urine Bilirubin NEGATIVEmg/dL Urine Urobilinogen NEGATIVEmg/dL Urine Leukocyte Esterase NEGATIVELeu/ul Urine Hemoglobin NEGATIVEmg/dL Urine Glucose 3+mg/dL Urine Total Protein NEGATIVEmg/dl White Blood Count 6.010^3/ul Red Blood Count 4.3510^6/ul Hemoglobin 12.6g/dl Hematocrit 38.8% Mean Corpuscular Volume 89.2fl Mean Corpuscular Hemoglobin 29.0pg Mean Corpuscular Hemoglobin Concent 32.5g/dl Red Cell Distribution Width 14.2% Platelet Count 85539^3/UL Mean Platelet Volume 11.8fl Neutrophils % 68.7% Lymphocytes % 24.8% Monocytes % 5.0% Eosinophils % 0.7% Basophils % 0.3% Nucleated Red Blood Cells % 0.0/100WBC Neutrophils # 4.110^3/ul Lymphocytes # 1.510^3/ul Monocytes # 0.310^3/ul Eosinophils # 0.010^3/ul Basophils # 0.010^3/ul Nucleated Red Blood Cells # 0.010^3/ul Prothrombin Time 12.3Sec Prothrombin Time Ratio 1.0 INR International Normalized Ratio 0.91 Activated Partial Thromboplast Time 21.8Sec Sodium Level 140mmol/L Potassium Level 4.3mmol/L Chloride Level 95mmol/L Carbon Dioxide Level 29mmol/L Anion Gap 20 Blood Urea Nitrogen 11mg/dl Creatinine 0.66mg/dl Glucose Level 401mg/dl Calcium Level 9.5mg/dl Total Bilirubin 0.1mg/dl Direct Bilirubin 0.00mg/dl Indirect Bilirubin 0.1mg/dl Aspartate Amino Transf (AST/SGOT) 123IU/L Alanine Aminotransferase (ALT/SGPT) 80IU/L Alkaline Phosphatase 130IU/L Total Protein 8.4g/dl Albumin 4.4g/dl Globulin 4.00g/dl Albumin/Globulin Ratio 1.10 Lipase 193U/L Bedside Glucose 338mg/dL 281mg/dL Current Medications Medications (Trade) Dose Ordered Sig/Christi Route PRN Reason Start Time Stop Time Status Last Admin Dose Admin Ondansetron HCl (Zofran Inj) 4 mg ONCE STAT IV 02/06/17 20:00 02/06/17 20:02 DC 02/06/17 20:30 Ketorolac Tromethamine 30 mg 30 mg ONCE STAT IV 02/06/17 20:00 02/06/17 20:02 DC 02/06/17 20:31 Sodium Chloride (NS) 1,000 ml @ 1,000 mls/hr Q1H ONCE IV 02/06/17 21:30 02/06/17 22:29 DC 02/06/17 21:13 Insulin Human Lispro (Humalog) 6 unit ONCE STAT SC 02/06/17 21:13 02/06/17 21:15 DC 02/06/17 21:31 Procedures/MDM EMERGENCY DEPARTMENT COURSE / MEDICAL DECISION MAKING: This is a 51-year-old female who comes to the emergency room secondary to complaints of abdominal pain. The patient was given IV Toradol, IV fluids, in the department. On re-evaluation , the patient was feeling improved. Lab results reviewed. CBC: No signs of leukocytosis or anemia Chemistry: Liver enzymes slightly elevated but not significant. May be signs of fatty liver disease given the patient's obesity. Additionally the patient's first blood glucose was 401, but this was controlled with 1 L IV fluids and 6 units of regular insulin, which dropped a 281 prior to discharge. UA: Not concerning for urinary tract infection Lipase: Within normal limits Radiology: [place] [id number] Radiology Main Line: [phone] DIAGNOSTIC IMAGING REPORT Patient: MARTHA ALFREDO : 1965 Age: 51 Sex: F MR #: [id number] DOS: 02/06/171999 Ordering MD: JOSE F BARRETT PA-C Location: [facility] Room/Bed: PROCEDURE: CT Abdomen and Pelvis without contrast. CLINICAL INDICATION: Abdominal and pelvic pain. TECHNIQUE: CT scan of the abdomen and pelvis without contrast was performed. Coronal and sagittal reformatted images were obtained from the axial source images. Images were reviewed on a high-resolution PACS workstation. Total exam DLP is 373.94 mGy-cm. CTDIvol is 7.06 mGy. One or more of the following dose reduction techniques were used: Automated exposure control, adjustment of the mA and/or kV according to patient size, use of iterative reconstruction technique. COMPARISON: Right upper quadrant abdomen ultrasound dated 01/28/2017 which demonstrated multiple gallstones in the gallbladder. FINDINGS: The lung bases are normal. There is no pleural effusion. The liver is normal in size and attenuation. There is no focal hepatic lesion. Gallstones are present in the gallbladder. There is no gallbladder wall thickening or fluid around the gallbladder. The bile ducts are normal. The spleen is normal in size. There is no focal splenic lesion. Both adrenals are normal with no enlargement or mass. The pancreas is unremarkable with no mass or evidence of pancreatitis. There is no renal mass or hydronephrosis. There is no renal calculus or ureteral calculus. The abdominal aorta is not dilated. There is no retroperitoneal lymphadenopathy or mass. There is no pelvic lymphadenopathy or mass. The bladder and distal ureters are normal. The periappendiceal region is unremarkable with no evidence of appendicitis. The bowel and mesentery are normal. There is no free fluid or free gas. There are mild degenerative changes of the spine with small osteophytes noted. The osseous structures are otherwise unremarkable with no fracture or lytic lesion. IMPRESSION: 1. Gallstones in the gallbladder. No evidence of cholecystitis. 2. Mild degenerative changes of the spine. 3. Otherwise unremarkable study. RPTAT: QQ .Donald Lopez MD, MD Date Time Electronically viewed and signed by .Donald Lopez MD, on 02/06/2017 21:48 .R/ CC: JOSE F BARRETT PA-C The primary diagnosis is gallstones. I have low suspicion for cholecystitis, appendicitis, other acute abdomen, sepsis, or other emergent conditions at this time. Discharge: I have discussed the lab results and diagnostic findings with the patient and answered any questions or concerns. The patient was discharged with a prescription for naproxen. The patient was advised to followup with their PMD in 1-2 days and to return to the Emergency Department if there are any new or worsening symptoms. The patient understood and agreed with the diagnosis, treatment and plan. The patient is stable for discharge at this time. Departure Diagnosis: Primary Impression: Gallstones Condition: Fair Patient Instructions: What Are Gallstones? Referrals: [facility] YOU HAVE RECEIVED A MEDICAL SCREENING EXAM AND THE RESULTS INDICATE THAT YOU DO NOT HAVE A CONDITION THAT REQUIRES URGENT TREATMENT IN THE EMERGENCY DEPARTMENT. FURTHER EVALUATION AND TREATMENT OF YOUR CONDITION CAN WAIT UNTIL YOU ARE SEEN IN YOUR DOCTORS OFFICE WITHIN THE NEXT 1-2 DAYS. IT IS YOUR RESPONSIBILITY TO MAKE AN APPOINTMENT FOR [facility]. IF YOU HAVE A PRIMARY DOCTOR --you should call your primary doctor and schedule an appointment IF YOU DO NOT HAVE A PRIMARY DOCTOR YOU CAN CALL OUR PHYSICIAN REFERRAL HOTLINE AT IF YOU CAN NOT AFFORD TO SEE A PHYSICIAN YOU CAN CHOSE FROM THE FOLLOWING [facility] [address] [facility] [address] [facility] [address] [facility] [address] [facility] [address] [facility]. [facility]. [address] Additional Instructions: No mas mejor en 2-3 doherty, regresar. Mas peor en 24 horas, regresear rapidamente. Ir a doctor primario in 5-7 doherty. Usar instrucciones cuando raul medicamento. JOSE F BARRETT PA-C Feb 06, 2017 23:44
== END 2017-02-06 22:44 | disposition home or self-care (01) ==
LOC: FTE 19:19
DX: K80.20 Calculus of gallbladder without cholecystitis without obstruction (principal); E11.9 Type 2 diabetes mellitus without complications; R11.2 Nausea with vomiting, unspecified; R10.2 Pelvic and perineal pain; Z79.82 Long term (current) use of aspirin; Z79.84 Long term (current) use of oral hypoglycemic drugs
CPT/HCPCS: 36415; 74176; 80053; 81003; 82962; 83690; 85025; 85610; 85730; 96372; 96374; 96375; J1815; J1885; J2405; J7030; Z7502

== ENCOUNTER 2017-07-04 15:34 | Emergency (ER) | payer MEDICAID ==
[~2017-07-04] VITALS: Ht 157.5 cm; Wt 78.0 kg
[~2017-07-04 15:34] MED LIST changes: +NAPR-260 PO
[2017-07-04 15:39] VITALS: Ht 157.5 cm; Wt 78.0 kg
[2017-07-04 19:58] VITALS: TEMP 98.1
[2017-07-04 20:03] LABS: URINE BLOOD (Dip) POC Negative (NEGATIVE)
[2017-07-04] MEDS ORDERED: GLIP5TAB13 PO (20:03)
--- NOTE | 2017-07-04 20:20 | ERD ---
ER Documentation Chief Complaint Chief Complaint RIGHT ARM NUMBNESS ONSET Jun This is a 51-year-old female with a past medical history of hyperlipidemia, diabetes who is presenting with right arm tingling that has been ongoing but has gotten progressively worse over the last 3 days. 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 She does jeffrey at home and frequently uses her right hand for this. She endorses a tingling sensation in that hand that is worse after crocheting. The patient's symptoms are transient, and she does not have the symptoms now. The patient denies any personal or family history of heart attack or stroke. He does not have any other deficits. She denies any numbness or tingling now. She has not had any weakness. She has not had a facial droop. She has not had any dysarthria or aphasia. The patient denies feeling sick recently. The patient denies fever or chills. The patient has had no headache or vision changes. The patient does not endorse neck or back pain. The patient denies lightheadedness or dizziness. The patient has had no chest pain or shortness of breath or trouble breathing. The patient denies nausea or vomiting. The patient denies abdominal pain or changes to bowel movements or urination. ROS All systems reviewed and are negative except as per history of present illness. Medications Home Meds Reported Medications Glipizide* (Glipizide*) 5 Mg Tablet, 5 MG PO AC BREAKFAST DINNER, TAB 07/04/17 Aspirin (Low Dose Aspirin) 81 Mg Tablet.dr, 81 MG PO DAILY, #30 TAB 01/06/17 Simvastatin (Simvastatin) 20 Mg Tablet, 20 MG PO QHS, #30 TAB 01/06/17 Metformin Hcl* (Metformin Hcl*) 1,000 Mg Tablet, 1000 MG PO WITH BREAKFAST DINNE , #30 TAB 01/06/17 Discontinued Scripts Naproxen* (Naprosyn*) 500 Mg Tablet, 500 MG PO BID Y for PAIN AND/OR INFLAMMATION, #30 TAB Prov:JOSE F BARRETT PA-C 02/06/17 Hydrocodone/Acetaminophen ([place] 5-325 Tablet) 1 Each Tablet, 1 TAB PO Q6H Y for PAIN, #7 TAB Prov:JONONESTOR 01/28/17 Metronidazole* (Flagyl*) 500 Mg Tablet, 500 MG PO TID for 7 Days, TAB Prov:JONO,NESTOR 01/28/17 Ciprofloxacin Hcl* (Ciprofloxacin Hcl*) 500 Mg Tablet, 500 MG PO BID for 7 Days , TAB Prov:JONO,NESTOR 01/28/17 Naproxen* (Naproxen*) 375 Mg Tablet, 375 MG PO BID Y for PAIN, #10 TAB Prov:RAMANA ABARCA DO 01/06/17 Allergies Allergies: Coded Allergies: No Known Drug Allergies (Verified Allergy, Unknown, 07/04/17) PMhx/Soc History of Surgery: Yes ( X3) Anesthesia Reaction: No Hx Neurological Disorder: No Hx Respiratory Disorders: No Hx Cardiac Disorders: Yes (HTN, HLD) Hx Psychiatric Problems: No Hx Miscellaneous Medical Probl: Yes (DM) Hx Alcohol Use: No Hx Substance Use: No Hx Tobacco Use: No Smoking Status: Never smoker FmHx Family History: diabetes, No coronary disease Physical Exam Vitals Vital Signs Date Time Temp Pulse Resp B/P Pulse Ox O2 Delivery O2 Flow Rate FiO2 07/04/17 19:58 98.1 69 18 133/88 100 Room Air 07/04/17 15:39 98.1 91 18 177/97 99 Physical Exam Const: No apparent distress, well-developed, well-nourished Head: Normocephalic, Atraumatic Eyes: Normal Conjunctiva. Extraocular movements intact. Pupils equal, round and reactive to light ENT: Normal External Ears, Nose and Mouth. Neck: Full range of motion. No meningismus. Resp: Clear to auscultation bilaterally, No wheezes, rales or rhonchi Cardio: Regular rate and rhythm. No murmurs, rubs or gallops Abd: Soft, non tender, non distended. Normal bowel sounds Skin: No petechiae or rashes Back: No midline tenderness. No CVA tenderness Ext: No cyanosis, or edema Neur: Awake and alert, oriented 4. Cranial nerves intact. No facial droop. Normal strength, sensation and coordination. Positive Phalen test. Psych: Normal Mood and Affect Results 24 hrs Laboratory Tests Test 07/04/17 20:04 Bedside Urine pH (LAB) 5.0 Bedside Urine Protein (LAB) Negative Bedside Urine Glucose (UA) Negative Bedside Urine Ketones (LAB) Negative Bedside Urine Blood Negative Bedside Urine Nitrite (LAB) Negative Bedside Urine Leukocyte Esterase (L Negative Procedures/MDM The patient's symptoms are reassuring at this time. She does not have any focal deficits. She does not have a history concerning for stroke. I have low suspicion for an intracranial pathology. The patient does have a positive Phalen test. 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 The patient's symptoms have resolved when she rests her hand. This also correlates. She will be given a wrist brace. At this time, I feel that the patient stable for discharge. The patient will need follow-up with his primary care physician in 2-3 days. The patient will be given strict precautions with which to return to the emergency department. The patient's blood pressure was elevated at greater than 120/80 while in the emergency department. The patient was otherwise stable with no evidence of hypertensive urgency or emergency or end organ damage. The patient does not require admission for blood pressure control. I have discussed with the patient the risks of hypertension. I have advised the patient to follow up with the primary care physician for outpatient monitoring and treatment for hypertension in 2-3 days. I have instructed the patient to return to the ER for any new or worsening symptoms including chest pain, shortness of breath, headache, blurred vision, confusion, nausea, vomiting or LOC. Disclaimer: Inadvertent spelling and grammatical errors are likely due to EHR/ dictation software use and do not reflect on the overall quality of patient care. Note that the electronic time recorded on this note does not necessarily reflect the actual time of the patient encounter. Departure Diagnosis: Primary Impression: Paresthesia Additional Impression: Carpal tunnel syndrome of right wrist Condition: SHANON Ibarra MD Jul 04, 2017 20:20 primary care physician for outpatient monitoring and treatment for hypertension in 2-3 days. I have instructed the patient to return to the ER for any new or worsening symptoms including chest pain, shortness of breath, headache, blurred vision, confusion, nausea, vomiting or LOC. Disclaimer: Inadvertent spelling and grammatical errors are likely due to EHR/ dictation software use and do not reflect on the overall quality of patient care. Note that the electronic time recorded on this note does not necessarily reflect the actual time of the patient encounter. Departure Diagnosis: Primary Impression: Paresthesia Condition: SHANON Ibarra MD Jul 04, 2017 20:20
[2017-07-04] MEDS ORDERED: IBUP-1542 PO (20:38)
[2017-07-04 20:45] VITALS: BP 126/84; PULSE 69; RESP 18
== END 2017-07-04 20:52 | disposition home or self-care (01) ==
LOC: E/R 15:34
DX: R20.2 Paresthesia of skin (principal); G56.01 Carpal tunnel syndrome, right upper limb; I10 Essential (primary) hypertension; E11.9 Type 2 diabetes mellitus without complications; Z79.82 Long term (current) use of aspirin; Z79.84 Long term (current) use of oral hypoglycemic drugs
CPT/HCPCS: 29125; 81003; Z7502

== ENCOUNTER 2017-09-16 22:25 | Emergency (ER) | END 2017-09-17 08:03 | disposition home or self-care (01) ==

== ENCOUNTER 2018-06-24 20:50 | Emergency (ER) | END 2018-06-25 00:41 | disposition left against medical advice (07) ==

== ENCOUNTER 2018-06-30 20:01 | Emergency (ER) | END 2018-07-01 01:15 | disposition home or self-care (01) ==

== ENCOUNTER 2019-02-11 22:57 | Emergency (ER) | payer MEDICAID ==
[~2019-02-11] VITALS: Ht 157.5 cm; Wt 54.3 kg
[~2019-02-11 22:57] MED LIST changes: -ASPI-664 PO; +ASPI81TA52 PO; -CIPR500T4 PO; +GLIP5TAB13 PO; -HYDR-906 PO; +IBUP-1542 PO; +LORA-441 PO; -METF1000 PO; +METF100010 PO; -METR500T PO; -NAPR-260 PO; -NAPR-685 PO; +ONDA4TAB14 PO
[2019-02-11 23:18] VITALS: BP 158/89; PULSE 85; RESP 22; Ht 157.5 cm; Wt 54.3 kg
[2019-02-11] MEDS ORDERED: KETOROLAC 30 MG INJ IM STA (23:44)
[2019-02-11] MEDS ORDERED: ONDANSETRON (ODT) 4 MG TAB ODT STA (23:45)
--- NOTE | 2019-02-12 01:54 | ERD ---
ER Documentation Chief Complaint Chief Complaint BIB SELF W/ C/O WORSENING CHEN X3 DAYS HPI Patient is a 53-year-old female with diabetes who presents with a headache. The patient said that her headache started on Sunday. Was gradual in onset. She felt like it was her whole head. She tried Tylenol for pain. She denies fevers. She has no slurred speech. She had nausea but no vomiting. Upon review of old medical records this is the patient's 11th visit to the ER since 2016. She does not remember the name of her primary doctor. ROS All systems reviewed and are negative except as per history of present illness. Medications Home Meds Active Scripts Ondansetron (Ondansetron Odt) 4 Mg Tab.rapdis, 4 MG PO Q6H PRN for NAUSEA AND/OR VOMITING, #10 TAB Prov:HAMMAD MARSH MD 02/11/19 Ibuprofen* (Motrin*) 600 Mg Tab, 600 MG PO Q6H PRN for PAIN AND OR ELEVATED TEMP, #30 TAB Prov:HAMMAD MARSH MD 02/11/19 Lorazepam* (Ativan*) 0.5 Mg Tablet, 0.5 MG PO Q8H PRN for ANXIETY, #10 TAB Prov:JOSE F CAR 07/01/18 Ondansetron (Ondansetron Odt) 4 Mg Tab.rapdis, 4 MG PO Q6H PRN for NAUSEA AND/OR VOMITING, #10 TAB Prov:OSEAS PULLIAM PA-C 09/17/17 Ibuprofen* (Motrin*) 600 Mg Tab, 600 MG PO Q6 for PAIN, #30 TAB Prov:SHANON FLOREZ MD 07/04/17 Reported Medications Glipizide* (Glipizide*) 5 Mg Tablet, 5 MG PO AC BREAKFAST DINNER, TAB 07/04/17 Aspirin (Low Dose Aspirin) 81 Mg Tablet.dr, 81 MG PO DAILY, #30 TAB 01/06/17 Simvastatin (Simvastatin) 20 Mg Tablet, 20 MG PO QHS, #30 TAB 01/06/17 Metformin Hcl* (Metformin Hcl*) 1,000 Mg Tablet, 1000 MG PO WITH BREAKFAST DINNE, #30 TAB 01/06/17 Allergies Allergies: Coded Allergies: No Known Drug Allergies (Verified Allergy, Unknown, 07/04/17) PMhx/Soc History of Surgery: Yes ( X3) Anesthesia Reaction: No Hx Neurological Disorder: No Hx Respiratory Disorders: No Hx Cardiac Disorders: Yes (HTN, HLD) Hx Psychiatric Problems: No Hx Miscellaneous Medical Probl: No Hx Alcohol Use: No Hx Substance Use: No Hx Tobacco Use: No Smoking Status: Never smoker FmHx Family History: diabetes Physical Exam Vitals Vital Signs Date Temp Pulse Resp B/P (MAP) Pulse Ox O2 O2 Flow FiO2 Time Delivery Rate 02/11/19 97.5 85 22 158/89 100 23:18 (112) Physical Exam Const: No acute distress Head: Atraumatic Eyes: Normal Conjunctiva ENT: Normal External Ears, Nose and Mouth. Neck: Full range of motion. No meningismus. Resp: Clear to auscultation bilaterally Cardio: Regular rate and rhythm, no murmurs Abd: Soft, non tender, non distended. Normal bowel sounds Skin: No petechiae or rashes Back: No midline or flank tenderness Ext: No cyanosis, or edema Neur: Awake and alert, cranial nerves II through XII are intact, strength is 5 out of 5 in all 4 extremity's, no slurred speech Psych: Normal Mood and Affect Results 24 hrs Current Medications Medications Dose Sig/Christi Start Time Status Last (Trade) Ordered Route PRN Stop Time Admin Dose Reason Admin Ketorolac 30 mg ONCE STAT 02/11/19 DC 02/11/19 Tromethamine IM 23:44 02/11/19 23:51 (Toradol) 23:45 Ondansetron 4 mg ONCE STAT 02/11/19 DC 02/11/19 HCl (Zofran ODT 23:45 02/11/19 23:50 Odt) 23:46 Procedures/MDM Patient is a 53-year-old female presents with acute headache. I doubt stroke, intrarenal hemorrhage, or intra-cranial mass. Her neurologic exam is normal. I believe the risk of doing a CT scan of the brain outweigh the benefits given the risk of radiation. The patient will be treated for pain will be discharged. The patient can return sooner for any worsening symptoms. I believe outpatient management is appropriate. The patient should follow-up closely however with her primary doctor within 1 week. Departure Diagnosis: Primary Impression: Headache Headache type: unspecified Headache chronicity pattern: acute headache Intractability: not intractable Qualified Codes: R51 - Headache Condition: Fair Patient Instructions: Self-Care for Headaches Referrals: Your doctor Additional Instructions: Llame al doctor nombrado morena (Referral Sources) MAANA y geneva rocio CHUCKIE PARA DENTRO DE ROCIO SEMANA. Dgale a la secretaria que nosotros le instruimos hacer esta chuckie.Avise o llame si galdamez condicin se empeora antes de la chuckie. HAMMAD MARSH MD Feb 12, 2019 01:54
== END 2019-02-12 00:06 | disposition home or self-care (01) ==
LOC: FTE 22:57
DX: R51 Headache (principal); E11.9 Type 2 diabetes mellitus without complications; I10 Essential (primary) hypertension; Z79.82 Long term (current) use of aspirin; Z79.84 Long term (current) use of oral hypoglycemic drugs
CPT/HCPCS: 96372; J1885; Z7502; Z7610